=== PATIENT | female | born 1970 | race Caucasian/White ===

== ENCOUNTER 2017-02-11 17:47 | Emergency (ER) | payer MEDICARE, OTHER ==
[~2017-02-11 17:47] MED LIST: XYZAL5 MG PO
[2017-02-11 20:35] LABS: HEMOGLOBIN 12.4 gm/dl (12.3-15.3); RED BLOOD COUNT 4.88 M/UL (4.00-5.10); WHITE BLOOD COUNT 8.5 K/UL (4.5-11.0)
[2017-02-11 21:03] LABS: BUN/CREATININE RATIO 15 (0-10)
== END 2017-02-12 14:40 ==
LOC: ER1 17:47
PROVIDERS: Family Medicine
DX: M54.5 Low back pain (principal); M25.562 Pain in left knee; F32.9 Major depressive disorder, single episode, unspecified; Z88.0 Allergy status to penicillin; Z88.8 Allergy status to other drugs, medicaments and biological substances; W01.0XXA Fall on same level from slipping, tripping and stumbling without subsequent striking against object, initial encounter
CPT/HCPCS: 36415; 73564; 80053; 80307; 81001; 84703; 85025; 99284

== ENCOUNTER 2021-12-12 22:04 | Emergency (ER) | payer MEDICARE, OTHER ==
[~2021-12-12 22:04] MED LIST changes: +ALEVE220 MG PO; +BENTYL 20MG TAB20 MG PO; +CEFUROXIME500 MG PO; +COZAAR50 MG PO; +CYMBALTA60 MG PO; +DITROPAN 5 MG TA5 MG PO; +HYDRALAZINE HCL50 MG PO; +IBUPROFEN800 MG PO; +IMITREX100 MG PO; +K-DUR TAB 20 M20 MEQ PO; +LIPITOR10 MG PO; +MEGA BIOTIN10000 MCG PO; +METOPROLOL SUCC25 MG PO; +MULTIPLE VITAM1 EAC2 PO; +MYCOSTATIN CREA15 GM TOP; +NEURONTIN 400400 MG PO; +PRILOSEC OTC20 MG PO; +PROBIOTIC & AC1 EACH PO; +PROTONIX40 MG PO; +TYLENOL 500 MG500 MG PO; +ULTRAM50 MG PO; +ZOFRAN ODT 4 MG4 MG PO; +ZOFRAN8 MG PO
[2021-12-12 23:18] LABS: HEMOGLOBIN 12.3 gm/dl (12.3-15.3); RED BLOOD COUNT 4.61 M/UL (4.00-5.10); WHITE BLOOD COUNT 7.5 K/UL (4.5-11.0)
[2021-12-13 00:16] LABS: BUN/CREATININE RATIO 20 (0-10)
[2021-12-13] MEDS ORDERED: CEFUROXIME500 MG PO (05:27)
== END 2021-12-13 06:00 | disposition home or self-care (01) ==
LOC: ER1 22:04
PROVIDERS: Physician Assistant
DX: N39.0 Urinary tract infection, site not specified (principal); E10.9 Type 1 diabetes mellitus without complications; I10 Essential (primary) hypertension; Z88.0 Allergy status to penicillin
CPT/HCPCS: 80053; 81001; 85025; 87077; 87086; 87186; 99284; Q9967

== ENCOUNTER → 2022-03-19 | Outpatient (CLI) | payer MEDICARE, OTHER ==
[2022-03-19 14:05] LABS: BUN/CREATININE RATIO 18 (0-10)
[2022-03-19 14:21] LABS: HEMOGLOBIN 13.2 gm/dl (12.3-15.3); RED BLOOD COUNT 5.02 M/UL (4.00-5.10); WHITE BLOOD COUNT 5.6 K/UL (4.5-11.0)
== END ==
LOC: LAB 12:42
PROVIDERS: Family Medicine
DX: E55.9 Vitamin D deficiency, unspecified (principal); E53.8 Deficiency of other specified B group vitamins; E78.5 Hyperlipidemia, unspecified; I10 Essential (primary) hypertension; R53.82 Chronic fatigue, unspecified; E66.9 Obesity, unspecified
CPT/HCPCS: 36415; 80053; 80061; 82607; 83036; 84439; 84443; 85025